=== PATIENT | female | born 1955 ===

== ENCOUNTER 2018-07-18 09:58 | Outpatient (CLI) | payer OTHER ==
[~2018-07-18] VITALS: Ht 162.6 cm; Wt 67.1 kg
[2018-07-18] MEDS ORDERED: FLONASE16 GM NASAL (12:15)
[2018-07-18] MEDS ORDERED: ZANTAC300 MG PO (12:16)
[2018-07-18] MEDS ORDERED: ALLEGRA ALLERG180 MG PO (12:16)
[2018-07-18] MEDS ORDERED: OMEPRAZOLE40 MG PO (12:16)
== END 2018-07-18 10:15 | disposition home or self-care (01) ==
LOC: OFIC 805 09:58
DX: R05 Cough (principal); J31.0 Chronic rhinitis; J37.0 Chronic laryngitis; J34.2 Deviated nasal septum

== ENCOUNTER 2021-03-31 13:49 | Outpatient (CLI) | payer OTHER ==
[~2021-03-31 13:49] MED LIST: ALLEGRA ALLERG180 MG PO; FLONASE16 GM NASAL; OMEPRAZOLE40 MG PO; ZANTAC300 MG PO
== END 2021-03-31 13:55 | disposition home or self-care (01) ==
LOC: RAD 13:49
PROVIDERS: ATTEND Specialist
DX: M19.012 Primary osteoarthritis, left shoulder (principal); M25.512 Pain in left shoulder; M75.42 Impingement syndrome of left shoulder